=== PATIENT | male | born 1965 | race Caucasian/White ===

== ENCOUNTER 2021-03-18 17:29 | Emergency (ER) | payer OTHER ==
[~2021-03-18 17:29] MED LIST: KEFLEX CAP 500500 MG PO
== END 2021-03-18 18:47 | disposition home or self-care (01) ==
LOC: ER1 17:29
DX: S61.412A Laceration without foreign body of left hand, initial encounter (principal); F17.200 Nicotine dependence, unspecified, uncomplicated; W45.0XXA Nail entering through skin, initial encounter
CPT/HCPCS: 99282

== ENCOUNTER 2021-05-18 11:38 | Emergency (ER) | payer OTHER | END 2021-05-18 13:10 | disposition home or self-care (01) | LOC: ER1 11:38 | DX: S51.812A Laceration without foreign body of left forearm, initial encounter (principal); F17.210 Nicotine dependence, cigarettes, uncomplicated; I10 Essential (primary) hypertension; W45.8XXA Other foreign body or object entering through skin, initial encounter | CPT/HCPCS: 12002; 99282 ==

== ENCOUNTER → 2021-10-21 | Outpatient (CLI) | payer OTHER | LOC: KOH-I 15:18 | DX: M25.551 Pain in right hip (principal) | CPT/HCPCS: 73502 ==